=== PATIENT | male | born 1985 | race Caucasian/White ===

== ENCOUNTER 2025-02-01 15:58 | Emergency (ER) | payer OTHER ==
[~2025-02-01] VITALS: Ht 193 cm; Wt 108.9 kg
[2025-02-01] MEDS: SODIUM CHLORIDE 0.9% 1000ML 2,000 ML IV STA ×2 (16:25→17:44)
[2025-02-01 16:28] VITALS: TEMP 98
[2025-02-01 16:28] LABS: BASOPHILS % 0.5 % (0.0-1.0); EOSINOPHILS % 1.1 % (0.0-6.0); LYMPHOCYTES % 19.2 % (18.0-39.1); MONOCYTES % 8.2 % (4.4-11.3); NEUTROPHILS % 70.4 % (38.7-80.0); RED CELL DISTRIBUTION WIDTH 12.7 % (11.7-14.4)
[2025-02-01 16:55] LABS: EST GLOMERULAR FILTRATION RATE 88.0 ML/MIN (>=60)
[2025-02-01] MEDS: KETOROLAC TROMETHAMINE 30 MG/ML VIAL IV STA (16:56)
[2025-02-01 18:09] VITALS: PULSE 89; RESP 18; O2SAT 99
== END 2025-02-01 16:10 | disposition home or self-care (01) ==
LOC: ER 16:03
DX: R53.1 Weakness (principal); E86.0 Dehydration; R53.81 Other malaise
CPT/HCPCS: 36415; 71045; 80053; 82550; 83690; 83880; 84484; 85025; 93005; 99283; J1885; J7030

== ENCOUNTER 2025-03-18 15:09 | Emergency (ER) | payer OTHER ==
[~2025-03-18] VITALS: Ht 193 cm; Wt 108.9 kg
[2025-03-18 17:21] VITALS: PULSE 88; RESP 17; TEMP 98.1; O2SAT 100
== END 2025-03-18 17:25 | disposition home or self-care (01) ==
LOC: ER 16:36
DX: Z48.817 Encounter for surgical aftercare following surgery on the skin and subcutaneous tissue (principal); Z72.0 Tobacco use
CPT/HCPCS: 99283